=== PATIENT | female | born 1970 | race Caucasian/White ===

== ENCOUNTER → 2017-11-07 | Outpatient (CLI) | payer BC ==
--- NOTE | 2017-11-07 08:58 | US ---
EXAMINATION TYPE: US abdomen complete DATE OF EXAM: 11/07/2017 COMPARISON: NONE CLINICAL HISTORY: 47-year-old female R10.11 RT Upper Quad Abdominal Pain. Pain. Bloating. NPO. No s urgeries. Technique: Multiple sonographic images of the abdomen are obtained. FINDINGS: Liver Length: 23.7 cm Gallbladder Wall: 0.2 cm CHD: 0.4 cm Spleen: 11.8 cm Right Kidney: 11.4 x 6.1 x 4.7 cm Left Kidney: 11.2 x 4.3 x 5.8 cm Pancreas: Appears echogenic Liver: Enlarged. Echogenic and attenuating. Gallbladder: wnl Evidence for sonographic Clark's sign: neg CBD: Obscured by overlying bowel gas CHD: wnl Spleen: wnl Right Kidney: wnl Left Kidney: wnl Upper IVC: wnl Abd Aorta: wnl IMPRESSION: Hepatomegaly (nearly 24 cm) with moderate to severe hepatic steatosis. Correlate with LFTs, lipid pro file, and patient risk factors.
== END | disposition home or self-care (01) ==
LOC: RADUSWWP 08:20
PROVIDERS: ATTEND Internal Medicine
DX: K76.0 Fatty (change of) liver, not elsewhere classified (principal); R16.0 Hepatomegaly, not elsewhere classified
CPT/HCPCS: 76700

== ENCOUNTER → 2017-11-23 | Outpatient (CLI) | payer BC ==
--- NOTE | 2017-11-23 09:12 | NM ---
EXAMINATION TYPE: NM hepatobiliary w EF DATE OF EXAM: 11/23/2017 COMPARISON: NONE HISTORY: Pain TECHNIQUE: After the intravenous administration of 5.29 mCi Tc 99m Mebrofenin hepatobiliary scintigra phy is performed. Immediate images post injection. FINDINGS: There is satisfactory initial accumulation of tracer by the liver. The gallbladder is visualized wit hin 10 minutes. The small bowel activity is noted within 24 minutes. At one hour 8 ounces of oral e nsure plus is given to mimic CCK and gallbladder ejection fraction is calculated at 68 %, in the norm al range. Therefore there is no scintigraphic evidence of cystic or common bile duct obstruction to suggest acute cholecystitis or gallbladder dyskinesia. IMPRESSION: Exam is within normal limits.
== END ==
LOC: RADNMMAIN 07:03
PROVIDERS: ATTEND Internal Medicine
DX: R10.11 Right upper quadrant pain (principal)
CPT/HCPCS: 78226; A9537

== ENCOUNTER → 2018-01-23 | Outpatient (CLI) | payer BC ==
--- NOTE | 2018-01-24 08:34 | CT ---
EXAMINATION TYPE: CT abdomen pelvis w con DATE OF EXAM: 01/23/2018 COMPARISON: NONE INDICATION: left sided abdominal pain, diverticulitis DLP: 1478.9 mGycm, Automated exposure control for dose reduction was used. CONTRAST: 100 mL of Isovue 300. Study performed with Oral Contrast TECHNIQUE: Axial images were obtained from above the diaphragm to the pubic rami in the axial plane a t 5 mm thick sections. Reconstructed images are reviewed on the computer in the coronal plane. FINDINGS: Limited CT sections are obtained the lung bases. The lung bases are clear. CT ABDOMEN: Liver: Mildly diminished density in relation spleen compatible with mild fatty infiltration of the li river. No discrete masses or cysts are evident. Hepatomegaly is present with a craniocaudal dimension o f 24 cm. Spleen: Normal Pancreas: Normal Adrenal glands: The adrenal glands are normal. Gallbladder: Normal Kidneys: No masses are evident. No hydronephrosis is present. No cysts are present. Delayed images were obtained through the kidneys, which remain unremarkable. Aorta: Vascular calcification is within the aorta. Inferior vena cava: Normal. CT PELVIS: Loops of bowel within the abdomen and pelvis are normal. There are loops of bowel which are incom pletely distended or lack oral contrast limiting their evaluation. There are a few diverticuli scatte red within the colon. Appendix: Normal as visualized. Urinary bladder: Normal. Genitourinary structures: Uterus appears prominent and bulky. Adnexal regions appear within normal li mits. A small hypodensity on the right kidney is noted and may be a 1.7 cm cyst. This is somewhat dif ficult to separate from nearby bowel. This could be followed with ultrasound. Osseous structures: No suspicious lytic or sclerotic lesions. IMPRESSIONS: 1. No suspicious changes of acute diverticulitis. Few diverticuli are scattered within the colon. 2. Probable 1.7 cm right ovarian cyst. This could be followed with ultrasound. 3. Suspicious abnormality to account for left lower quadrant pain is not identified.
== END | disposition home or self-care (01) ==
LOC: RADCTMAIN 16:21
PROVIDERS: ATTEND Internal Medicine
DX: K57.30 Diverticulosis of large intestine without perforation or abscess without bleeding (principal)
CPT/HCPCS: 74177; Q9967

== ENCOUNTER → 2018-02-01 | Outpatient (CLI) | payer BC ==
--- NOTE | 2018-02-02 07:45 | US ---
EXAMINATION TYPE: US pelvis complete transvag DATE OF EXAM: 02/01/2018 COMPARISON: CT abdomen and pelvis from 9 days ago CLINICAL HISTORY: N83.201 cyst of right ovary. Cyst seen on right ovary on cat scan TECHNIQUE: Transabdominal (TA). TV attempted, however no diagnostic value, due to enlarged, difficult to penetrate uterus Date of LMP: 01/02/2018 EXAM MEASUREMENTS: Uterus: 14.8 x 7.1 x 8.4 cm Endometrial Stripe: 0.8 cm Right Ovary: 3.7 x 3.2 x 2.0 cm 1. Uterus: Anteverted Heterogeneous, difficult to penetrate to properly evaluate 2. Endometrium: wnl 3. Right Ovary: Dominant follicle= 1.6 x 1.5 x 1.5 cm 4. Left Ovary: Unable to visualize due to enlarged uterus and overlying bowel 5. Bilateral Adnexa: wnl 6. Posterior cul-de-sac: wnl Anteverted uterus is present. There is heterogeneous myometrial prominent anteriorly felt to reflect ill-defined fibroid. Endometrium felt within normal limits. No free fluid in pelvis. Right ovary is seen. Within right ovary there is 1.6 cm irregular anechoic lesion favoring dominant f ollicle or simple small ovarian cyst. Left ovary is not clearly identified on ultrasound but was norm al in size on CT. IMPRESSION: Probable fibroid uterus. Suboptimal study due to inability to better visualize high posit ioned right ovary but right adnexal lesion is strongly favored benign.
== END | disposition home or self-care (01) ==
LOC: RADUSWWP 15:36
PROVIDERS: ATTEND Internal Medicine
DX: N83.8 Other noninflammatory disorders of ovary, fallopian tube and broad ligament (principal)
CPT/HCPCS: 76856

== ENCOUNTER → 2018-10-03 | Outpatient (CLI) | payer BC ==
--- NOTE | 2018-10-05 09:14 | MM ---
Reason for exam: screening (asymptomatic). Last mammogram was performed 4 years and 1 month ago. Physical Findings: A clinical breast exam by your physician is recommended on an annual basis and results should be correlated with mammographic findings. MG Screening Mammo w CAD Bilateral CC and MLO view(s) were taken. Prior study comparison: August 29, 2014, bilateral MG screening mammo w CAD. November 27, 2012, bilateral digital screening mammo w/CAD. The breast tissue is heterogeneously dense. This may lower the sensitivity of mammography. No significant changes when compared with prior studies. ASSESSMENT: Negative, BI-RAD 1 RECOMMENDATION: Routine screening mammogram of both breasts in 1 year.
== END | disposition home or self-care (01) ==
LOC: RADMAMWWP 13:18
PROVIDERS: ATTEND Obstetrics & Gynecology
DX: Z12.31 Encounter for screening mammogram for malignant neoplasm of breast (principal)
CPT/HCPCS: 77067

== ENCOUNTER → 2020-07-14 | Outpatient (CLI) | payer BC | END | disposition home or self-care (01) | LOC: LABWHC1 10:01 | PROVIDERS: ATTEND Internal Medicine | DX: R43.8 Other disturbances of smell and taste (principal); Z20.828 Contact with and (suspected) exposure to other viral communicable diseases | CPT/HCPCS: U0003; C9803 ==

== ENCOUNTER → 2020-08-14 | Outpatient (CLI) | payer BC ==
--- NOTE | 2020-08-17 11:50 | MM ---
Reason for exam: screening (asymptomatic). Last mammogram was performed 1 year and 10 months ago. Physical Findings: A clinical breast exam by your physician is recommended on an annual basis and results should be correlated with mammographic findings. MG Screening Mammo w CAD Bilateral CC and MLO view(s) were taken. Prior study comparison: October 03, 2018, bilateral MG screening mammo w CAD. August 29, 2014, bilateral MG screening mammo w CAD. The breast tissue is extremely dense which could obscure a lesion on mammography. There is no discrete abnormality. No significant changes when compared with prior studies. ASSESSMENT: Negative, BI-RAD 1 RECOMMENDATION: Routine screening mammogram of both breasts in 1 year.
== END | disposition home or self-care (01) ==
LOC: RADMAMWWP 15:43
PROVIDERS: ATTEND Internal Medicine
DX: Z12.31 Encounter for screening mammogram for malignant neoplasm of breast (principal)
CPT/HCPCS: 77067

== ENCOUNTER → 2020-09-09 | Outpatient (CLI) | payer BC ==
--- NOTE | 2020-09-09 15:17 | XR ---
EXAMINATION TYPE: XR chest 2V DATE OF EXAM: 09/09/2020 COMPARISON: NONE HISTORY: Persistent dyspnea after covid infection in July. TECHNIQUE: Frontal and lateral views of the chest are obtained. FINDINGS: There is no suspicious focal air space opacity, pleural effusion, or pneumothorax seen. T he cardiac silhouette size is within normal limits. The osseous structures are intact. IMPRESSION: No acute cardiopulmonary process.
== END | disposition home or self-care (01) ==
LOC: RADXRYALE 14:50
PROVIDERS: ATTEND Internal Medicine
DX: J20.9 Acute bronchitis, unspecified (principal)
CPT/HCPCS: 71046

== ENCOUNTER → 2022-02-14 | Outpatient (CLI) | payer BC ==
--- NOTE | 2022-02-14 15:38 | US ---
EXAMINATION TYPE: US venous doppler duplex LE LT DATE OF EXAM: 02/14/2022 3:03 PM COMPARISON: NONE CLINICAL HISTORY: M79.662 PAIN L LEG R22.42 SWELLING LEG. Pt states pain and bruising left calf, no k nown prior DVT, pt not on blood thinners SIDE PERFORMED: Left TECHNIQUE: The lower extremity deep venous system is examined utilizing real time linear array sonog kathleen with graded compression, doppler sonography and color-flow sonography. VESSELS IMAGED: Common Femoral Vein Deep Femoral Vein Greater Saphenous Vein * Femoral Vein Popliteal Vein Small Saphenous Vein * Proximal Calf Veins (* superficial vessels) Left Leg: Negative for DVT IMPRESSION: No evidence for DVT at this time.
== END | disposition home or self-care (01) ==
LOC: RADUSWWP 14:41
PROVIDERS: ATTEND Internal Medicine Hematology & Oncology
DX: M79.662 Pain in left lower leg (principal); R22.42 Localized swelling, mass and lump, left lower limb

== ENCOUNTER → 2022-06-16 | Outpatient (CLI) | payer BC ==
--- NOTE | 2022-06-17 11:36 | MM ---
Reason for Exam: Screening (asymptomatic). Last mammogram was performed 1 year(s) and 10 month(s) ago. Patient History: Menarche at age 12. First Full-Term at age 17. Perimenopausal. Last menstrual period: 06/09/2022 Risk Values: Lindsey 5 year model risk: 0.8%. NCI Lifetime model risk: 6.3%. Prior Study Comparison: 11/27/2012 Bilateral Screening Mammogram, [facility]. 08/29/2014 Bilateral Screening Mammogram, [facility]. 10/03/2018 Bilateral Screening Mammogram, [facility]. 08/14/2020 Bilateral Screening Mammogram, [facility]. Tissue Density: The breast tissue is heterogeneously dense. This may lower the sensitivity of mammography. Findings: Analyzed By CAD. Some subtle underlying low density nodularity middle to posterior depth centrally left breast CC view and low-density nodular asymmetric density superior left MLO view remain unchanged. No significant change from prior exams. Overall Assessment: Benign, BI-RAD 2 Management: Screening Mammogram of both breasts in 1 year. 1. Patient should continue monthly self breast exams. 2. A clinical breast exam by your physician is recommended on an annual basis. 3. This exam should not preclude additional follow-up of suspicious palpable abnormalities. Electronically signed and approved by: Shireen Alfaro M.D. Radiologist
== END | disposition home or self-care (01) ==
LOC: RADMAMWWP 13:58
PROVIDERS: ATTEND Obstetrics & Gynecology
DX: Z12.31 Encounter for screening mammogram for malignant neoplasm of breast (principal)
CPT/HCPCS: 77063; 77067

== ENCOUNTER → 2022-08-19 | Outpatient (CLI) | payer BC | END | disposition home or self-care (01) | LOC: LABPAT 14:35 | PROVIDERS: ATTEND Obstetrics & Gynecology | DX: Z01.812 Encounter for preprocedural laboratory examination (principal) | CPT/HCPCS: 80048; 85025; 86850; 86900; 86901; 93005 ==

== ENCOUNTER 2022-08-25 05:44 | Day surgery (SDC) | payer BC ==
[2022-08-19 23:06] LABS: Basophils # (A) 0.06 X 10*3/uL (0.00-0.10); Basophils % (A) 0.5 %; Eosinophils # (A) 0.01 X 10*3/uL (0.04-0.35); Eosinophils % (A) 0.1 %; HCT 35.7 % (37.2-46.3); HGB 10.6 g/dL (12.0-15.0); Immature Grans, Automated 0.6 %; Lymphocytes # (A) 1.64 X 10*3/uL (0.90-5.00); Lymphocytes % (A) 12.9 %; MCH 24.1 pg (27.0-32.0); MCHC 29.7 g/dL (32.0-37.0); MCV 81.3 fL (80.0-97.0); Mean Platelet Volume 9.9 fL (9.5-12.2); Monocytes # (A) 1.28 X 10*3/uL (0.20-1.00); Monocytes % (A) 10.1 %; NRBC Per 100 WBC 0 /100 WBCS (0.0-0.0); Neutrophils # (A) 9.62 X 10*3/uL (1.80-7.70); Neutrophils % (A) 75.8 %; Platelet Count 272 X 10*3/uL (140-440); RBC 4.39 X 10*6/uL (4.10-5.20); RDW 13.6 % (11.5-14.5); WBC 12.68 X 10*3/uL (4.50-10.00)
[2022-08-20 02:18] LABS: African American GFR (CKD) 98.7 (60.0-200.0); Anion Gap 11.3 mmol/L (10.00-18.00); BUN/Creat Ratio 12.51 Ratio (12.00-20.00); Carbon Dioxide 25.1 mmol/L (20.0-27.5); Non-African American GFR(CKD) 85.2 (60.0-200.0); Potassium 4.1 mmol/L (3.5-5.5)
[2022-08-25] MEDS ORDERED: DEXAMETHASONE SOD PHOSPHATE 4 MG/ML 1 ML VIAL IV ONE (05:49)
[2022-08-25] MEDS ORDERED: ONDANSETRON 4 MG/2 ML VIAL IVP ONE (05:49)
[2022-08-25] MEDS ORDERED: HYDROmorphone 0.5 MG/0.5 ML SYRINGE IVP PRN (05:49)
--- NOTE | 2022-08-25 06:17 | P.HPOB ---
History of Present Illness H&P Date: 08/25/22 Chief Complaint: fibroid uterus 51 year old presents for Total laparoscopic hysterectomy using da vinici with diagnostic cystoscopy and possible MAYCOL BSO. She has a 14 cm uterus with a large fundal fibroid. Review of Systems All systems: negative Constitutional: Denies chills, Denies fever Eyes: denies blurred vision, denies pain Ears, nose, mouth and throat: Denies headache, Denies sore throat Cardiovascular: Denies chest pain, Denies shortness of breath Respiratory: Denies cough Gastrointestinal: Denies abdominal pain, Denies diarrhea, Denies nausea, Denies vomiting Genitourinary: Denies dysuria, Denies hematuria Musculoskeletal: Denies myalgias Integumentary: Denies pruritus, Denies rash Neurological: Denies numbness, Denies weakness Psychiatric: Denies anxiety, Denies depression Endocrine: Denies fatigue, Denies weight change Past Medical History Past Medical History: GERD/Reflux Additional Past Medical History / Comment(s): hx. fatty liver, hx. low iron, fibroids History of Any Multi-Drug Resistant Organisms: None Reported Past Surgical History: Ear Surgery, Tubal Ligation Additional Past Surgical History / Comment(s): JAW SURG for realignment, eyelid surg. Past Anesthesia/Blood Transfusion Reactions: No Reported Reaction Smoking Status: Former smoker - Past Family History Mother Family Medical History: No Reported History Medications and Allergies Home Medications Medication Instructions Recorded Confirmed Type Omeprazole [PriLOSEC] 20 mg PO DAILY 02/18/22 08/24/22 History Venlafaxine HCl [Effexor] 37.5 mg PO DAILY 02/18/22 08/24/22 History Allergies Allergy/AdvReac Type Severity Reaction Status Date / Time Penicillins AdvReac Itching Verified 08/25/22 06:02 Exam Osteopathic Statement: *. No significant issues noted on an osteopathic structural exam other than those noted in the History and Physical/Consult. Intake and Output 08/24/22 08/24/22 08/25/22 14:59 22:59 06:59 Other: Weight 104.326 kg Heart: RRR Lungs: CTAB Abdomen: soft, nontender Extremeties: neg leroy's Results Result Diagrams: 08/19/22 15:03 08/19/22 15:03 Assessment and Plan (1) Fibroid uterus Current Visit: Yes Status: Acute Code(s): D25.9 - LEIOMYOMA OF UTERUS, UNSPECIFIED SNOMED Code(s): 79093404 (2) Menorrhagia Current Visit: Yes Status: Acute Code(s): N92.0 - EXCESSIVE AND FREQUENT MENSTRUATION WITH REGULAR CYCLE SNOMED Code(s): 115441945 Plan: 1. Total laparoscopic hysterectomy using da aubree and diagnostic cystoscopy with possible Total abdominal hysterectomy and bilateral salpingo-oopherectomy
[2022-08-25] MEDS ORDERED: LIDOCAINE 1% (10MG/ML) FOR IV START INTRADERMA ONE (06:25)
[2022-08-25] MEDS: LACTATED RINGERS 1,000 ML IV SCH (06:25)
[2022-08-25] MEDS ORDERED: SCOPOLAMINE 1 MG/72 HR PATCH TRANSDERM ONE (06:30)
[2022-08-25] MEDS ORDERED: fentaNYL (PF) 50 MCG/1 ML VIAL IV ONE (06:44)
[2022-08-25] MEDS ORDERED: MIDAZOLAM 2 MG/2 ML VIAL IV ONE (06:44)
--- NOTE | 2022-08-25 06:55 | P.ANPRN ---
Procedure Note - Anesthesia - Nerve Block Performed Bilateral Transversus Abdominis Single Time Out Performed: Yes ([id number]) Date of Procedure: 08/25/22 Procedure Start Time: :44 Procedure Stop Time: 06:53 Location of Patient: PreOp Indication: Acute Post-Operative Pain, Requested by Surgeon Sedation Type: Sedate with meaningful contact maintained Preparation: Sterile Prep Position: Supine Needle Types: Pajunk Needle Gauge: 21 Ultrasound used to visualize needle placement: Yes Ultrasound used to observe medication spread: Yes Injectate: 0.5% Ropivacaine (see comment for volume) (20 ML 0.25% RPOV RIGHT AND 20 ML LEFT) Blood Aspirated: No Pain Paresthesia on Injection Noted: No
[2022-08-25] MEDS ORDERED: LIDOCAINE 2% INJ 20 MG/ML (2 ML VIAL) ONE (07:10)
[2022-08-25] MEDS ORDERED: fentaNYL (PF) 50 MCG/ML 2 ML AMP ONE (07:10)
[2022-08-25] MEDS ORDERED: ePHEDrine 50 MG/ML 1 ML VIAL ONE (07:10)
[2022-08-25] MEDS ORDERED: PROPOFOL 10 MG/ML 20 ML VIAL IV ONE (07:10)
[2022-08-25] MEDS ORDERED: ROPIVACAINE 5 MG/ML 30 ML VIAL ONE (07:10)
[2022-08-25] MEDS ORDERED: SUCCINYLCHOLINE CHLORIDE 200 MG/10 ML VIAL IV ONE (07:10)
[2022-08-25] MEDS ORDERED: ROCURONIUM 10 MG/ML (5 ML VIAL) IV ONE (07:10)
[2022-08-25] MEDS ORDERED: MIDAZOLAM 2 MG/2 ML VIAL ONE (07:10)
[2022-08-25] MEDS ORDERED: NEOSTIGMINE 1 MG/ML 10 ML VIAL ONE (07:10)
[2022-08-25] MEDS ORDERED: GLYCOPYRROLATE 0.2 MG/ML 2 ML VIAL ONE (07:10)
[2022-08-25] MEDS ORDERED: BUPIVACAINE (PF) 0.25% 30 ML VIAL SQ ONE (07:56)
[2022-08-25] MEDS ORDERED: LACTATED RINGERS 1,000 ML IV ONE (08:30)
--- NOTE | 2022-08-25 08:52 | P.OP ---
Date of Procedure: 08/25/22 Preoperative Diagnosis: 1. fibroid uterus 2. menorrhagia Postoperative Diagnosis: same Procedure(s) Performed: Total laparoscopic hysterectomy using da Arthur and diagnostic cystoscopy Anesthesia: JONA Surgeon: Karla Bergeron Digital Sales Manager #1: Staci Ball Estimated Blood Loss (ml): 200 IV fluids (ml): 700 Urine output (ml): 250 Pathology: other (Uterus and cervix) Condition: stable Disposition: PACU Operative Findings: Large fibroid uterus and normal-appearing ovaries Description of Procedure: Patient taken the operating room where general anesthesia was obtained without difficulty. She is prepped and draped in normal sterile fashion dorsal lithotomy position, legs placed in the Kilo stirrups. Weighted speculum placed in the vagina and the anterior lip the cervix was grasped with single-tooth tenaculum. The uterus sounded to 13 cm and the cervix diameter was 4 cm. The appropriate manipulator tip and ring were placed on the Roxanne manipulator. The Roxanne manipulator was then placed in the uterus. Cruz catheter was also placed. Attention was then turned to the abdomen and gloves were changed. A 5 mm supraumbilical incision was made the scalpel and a 5 mm optical trocar was placed under direct visualization. 10 cm to the right of this and 2 cm down a 5 mm incision was made and 8 mm da Arthur port was placed under direct visualization. Same measurements on the opposite side of the patient's abdomen, the 5 mm incision was made and 8 mm da Arthur port was placed under direct visualization. In the left upper quadrant a 10 mm incision was made and a 10 mm optical trocar was placed under direct visualization. The 5 mm optical trocar was then replaced with the 8 mm da Arthur camera port. The robot was docked on patient's left side. The camera was introduced and then the monopolar curved scissor and [place] bipolar placed under direct visualization. I broke scrub and went to the physician console. The left utero-ovarian ligament was cauterized with the Maryland bipolar and cut with monopolar curved scissors. The left round ligament was cauterized with the [place] bipolar and cut with monopolar curved scissors. The posterior leaf of the broad ligament was taken down using the monopolar curved scissors. Anterior leaf of the broad ligament was then taken down using the monopolar curved scissors. The uterine artery was cauterized with the [place] bipolar and cut with monopolar curved scissors. The bladder flap was then started using the monopolar curved scissors. Attention was then turned to the right side of the patient's anatomy and the right utero-ovarian ligament was cauterized with the Maryland bipolar and cut with monopolar curved scissors. The right round ligament was cauterized with the [place] bipolar and cut with monopolar curved scissors. Posterior leaf of the broad ligament was taken down using the monopolar curved scissors and the anterior leaf was taken down using the monopolar curved scissors. The uterine artery was cauterized the [place] bipolar cut with monopolar curved scissors. The bladder flap was then finished on this side. Anterior colpotomy was made using the monopolar curved scissors. The rest of the uterus was from the vaginal cuff by following the ring around with the monopolar curved scissors through the uterosacral ligaments back to the anterior portion. Once the uterus and cervix were amputated they were pulled through the vaginal cuff. Hemostasis was assured. The instruments were changed for the Cardier forcep and the nadia suture cut. The vaginal cuff was then closed using O stratafix barbed suture in a running fashion. Hemostasis was again assured and the pelvis was irrigated. All instruments were removed from the abdomen and the robot was undocked. I scrubbed back in to perform a cystoscopy. There were jets from both ureteral orifices. The abdominal incisions were closed with 4-0 Vicryl in a subcuticular fashion. Patient tolerated the procedure well, sponge and instrument counts correct 2 and she was taken to recovery room in stable condition condition
[2022-08-25] MEDS ORDERED: SIMETHICONE 80 MG CHEWABLE PO PRN (09:50)
[2022-08-25] MEDS ORDERED: ZOLPIDEM 5 MG TAB PO PRN (09:50)
[2022-08-25] MEDS ORDERED: KETOROLAC 15 MG/ML 1 ML VIAL IVP PRN (09:50)
[2022-08-25] MEDS ORDERED: diphenhydrAMINE 50 MG/ML 1 ML VIAL IVP PRN (09:50)
[2022-08-25] MEDS ORDERED: Acetaminophen-Codeine 300-30mg TAB PO PRN ×2 (09:50)
[2022-08-25] MEDS ORDERED: ONDANSETRON 4 MG/2 ML VIAL IVP PRN (09:50)
[2022-08-25] MEDS ORDERED: KETOROLAC 15 MG/ML 1 ML VIAL IVP ONE (10:22)
[2022-08-25] MEDS ORDERED: SODIUM CHLORIDE 0.9% 1,000 ML IV ONE (10:26)
[2022-08-25] MEDS: SENNOSIDES-DOCUSATE SODIUM 1 EACH TAB PO SCH ×2 (11:52→20:21)
[2022-08-25] MEDS: VENLAFAXINE HCL 37.5 MG TAB PO SCH (11:52)
[2022-08-25] MEDS: PANTOPRAZOLE 40 MG TABLET PO SCH (11:53)
[2022-08-25] MEDS: IBUPROFEN 600 MG TAB PO PRN ×2 (13:36→19:34)
[2022-08-25] MEDS: ACETAMINOPHEN TAB 325 MG TAB PO PRN (17:03)
[2022-08-25 19:49] VITALS: RESP 18
[2022-08-26] MEDS: IBUPROFEN 600 MG TAB PO PRN (03:13)
[2022-08-26] MEDS: LACTATED RINGERS 1,000 ML IV SCH (06:26)
[2022-08-26 08:11] LABS: Basophils % (A) 0 %; Eosinophils % (A) 0 %; HCT 31.3 % (34.0-46.0); HGB 9.7 gm/dL (11.4-16.0); Hypochromasia Marked; Lymphocytes # (A) 1.9 k/uL (1.0-4.8); Lymphocytes % (A) 21 %; MCH 24.9 pg (25.0-35.0); MCV 80.5 fL (80.0-100.0); Mean Platelet Volume 7.8; Monocytes # (A) 0.6 k/uL (0-1.0); Monocytes % (A) 7 %; Neutrophils # (A) 6.4 k/uL (1.3-7.7); Neutrophils % (A) 71 %; Platelet Count 279 k/uL (150-450); RBC 3.89 m/uL (3.80-5.40); RDW 13.5 % (11.5-15.5)
[2022-08-26] MEDS: VENLAFAXINE HCL 37.5 MG TAB PO SCH (08:36)
[2022-08-26] MEDS: PANTOPRAZOLE 40 MG TABLET PO SCH (08:37)
[2022-08-26] MEDS: SENNOSIDES-DOCUSATE SODIUM 1 EACH TAB PO SCH (08:37)
[2022-08-26] MEDS: ACETAMINOPHEN TAB 325 MG TAB PO PRN (08:43)
[2022-08-26] MEDS ORDERED: HYDROcodone/APAP 7.5-325MG 1 EACH TAB PO PRN (09:14)
--- NOTE | 2022-08-26 09:14 | P.DS ---
Providers Expected date of discharge: 08/26/22 Attending physician: Karla Bergeron Primary care physician: Azul Mccarthy - Discharge Diagnosis(es) (1) Fibroid uterus Current Visit: Yes Status: Resolved (2) Menorrhagia Current Visit: Yes Status: Resolved (3) History of robot-assisted laparoscopic hysterectomy Current Visit: Yes Status: Acute Hospital Course: Patient presented for robotic-assisted total laparoscopic hysterectomy. She underwent this procedure without complication. Denies nausea, vomiting, chest pain, shortness of breath or calf pain. Patient will be discharged home day #1 in stable condition to follow-up with me in 3 weeks. Plan - Discharge Summary Discharge Rx Participant: Yes New Discharge Prescriptions: New Ibuprofen [Motrin] 600 mg PO Q6HR PRN #30 tab PRN Reason: Mild Discomfort HYDROcodone/APAP 7.5-325MG [Sacred Heart 7.5-325] 1 tab PO Q4H PRN 3 Days #18 tab PRN Reason: Pain No Action Venlafaxine HCl [Effexor] 37.5 mg PO DAILY Omeprazole [PriLOSEC] 20 mg PO DAILY Discharge Medication List Omeprazole [PriLOSEC] 20 mg PO DAILY 02/18/22 [History] Venlafaxine HCl [Effexor] 37.5 mg PO DAILY 02/18/22 [History] HYDROcodone/APAP 7.5-325MG [Sacred Heart 7.5-325] 1 tab PO Q4H PRN 3 Days #18 tab 08/26/22 [Rx] Ibuprofen [Motrin] 600 mg PO Q6HR PRN #30 tab 08/26/22 [Rx] Follow up Appointment(s)/Referral(s): Karla Bergeron DO [Doctor of Osteopathic Medicine] - 3 Weeks Patient Instructions/Handouts: *Surgery [facility] - Scopalamine Patch Instructions Discharge Disposition: HOME SELF-CARE
[2022-08-26 09:32] VITALS: BP 124/65; PULSE 76; TEMP 98
== END 2022-08-26 14:41 | disposition home or self-care (01) ==
LOC: OR 05:44 → 5NMEDONC 09:46 → OR 08-26 14:41
PROVIDERS: ATTEND Obstetrics & Gynecology
DX: D25.1 Intramural leiomyoma of uterus (principal); N72 Inflammatory disease of cervix uteri; N88.8 Other specified noninflammatory disorders of cervix uteri; N80.9 Endometriosis, unspecified; Z87.891 Personal history of nicotine dependence; K21.9 Gastro-esophageal reflux disease without esophagitis; K76.0 Fatty (change of) liver, not elsewhere classified; Z86.2 Personal history of diseases of the blood and blood-forming organs and certain disorders involving the immune mechanism; Z98.51 Tubal ligation status; Z98.890 Other specified postprocedural states; Z79.1 Long term (current) use of non-steroidal anti-inflammatories (NSAID); Z79.811 Long term (current) use of aromatase inhibitors; Z88.0 Allergy status to penicillin
CPT/HCPCS: 58572; 64488; 81025; 86900; 86901; 80048; 85025 ×2; 86850; 88307; 93005; J2250; J0330; J1100; J2710; J0690; J2405; J3010 ×2; J2795; J1885; J2704; J1170; J2001

== ENCOUNTER → 2022-12-30 | Outpatient (CLI) | payer BC ==
--- NOTE | 2022-12-30 15:39 | XR ---
EXAMINATION TYPE: XR hand complete RT DATE OF EXAM: 12/30/2022 CLINICAL HISTORY: [id number] RT FINGER PAIN. Palpable lump right middle finger. TECHNIQUE: Frontal, lateral and oblique images of the right hand are obtained. COMPARISON: None. FINDINGS: There is no acute fracture/dislocation evident in the right hand. The joint spaces in the right hand appear within normal limits. No suspicious bony destruction is seen. No suspicious radiode nse foreign body or mass is seen in the overlying soft tissue. Mild soft tissue swelling over the thi rd proximal phalanx is noted. IMPRESSION: As above.
== END | disposition home or self-care (01) ==
LOC: RADXRYALE 15:25
PROVIDERS: ATTEND Internal Medicine
DX: M79.644 Pain in right finger(s) (principal); M79.89 Other specified soft tissue disorders

== ENCOUNTER → 2023-09-26 | Outpatient (CLI) | payer BC ==
--- NOTE | 2023-09-27 09:11 | MM ---
Reason for Exam: Screening (asymptomatic). Last mammogram was performed 1 year(s) and 3 month(s) ago. Patient History: Menarche at age 12. First Full-Term at age 17. Hysterectomy at age 52. Perimenopausal. Risk Values: Lindsey 5 year model risk: 0.8%. NCI Lifetime model risk: 6.1%. Prior Study Comparison: 10/03/2018 Bilateral Screening Mammogram, [facility]. 08/14/2020 Bilateral Screening Mammogram, [facility]. 06/16/2022 Bilateral MG 3D screening mammo w/cad, [facility]. Tissue Density: The breast tissue is heterogeneously dense. This may lower the sensitivity of mammography. Findings: Analyzed By CAD. There is no suspicious group of microcalcifications or new suspicious mass. Overall Assessment: Negative, BI-RAD 1 Management: Screening Mammogram of both breasts in [address] [facility] will attempt to contact patient to return for supplemental views and ultrasound if indicated. Patient should continue monthly self-breast exams. A clinical breast exam by your physician is recommended on an annual basis. This exam should not preclude additional follow-up of suspicious palpable abnormalities. Note on Lindsey scores and lifetime risk: 1. A Lindsey score greater than 3% is considered moderate risk. If this is the case, consider specialist referral to assess eligibility for a risk reducing agent. 2. If overall lifetime risk for the development of breast cancer is 20% or higher, the patient may qualify for future screening with alternating mammogram and breast MRI. Electronically signed and approved by: Fadi Dillard DO
== END | disposition home or self-care (01) ==
LOC: RADMAMWWP 16:02
PROVIDERS: ATTEND Obstetrics & Gynecology
DX: Z12.31 Encounter for screening mammogram for malignant neoplasm of breast (principal)
CPT/HCPCS: 77063; 77067